=== PATIENT | female | born 1950 | race Caucasian/White ===

== ENCOUNTER 2017-07-15 06:58 | Day surgery (SDC) | payer MEDICARE, BC ==
[~2017-07-15 06:58] MED LIST: Lactated Ringers 1,000 ML IV SCH; Lidocaine 1%/Sod Bicarbonate in NS 8.4% 1 ML Syringe IDERM PRN; Sodium Chloride 0.9% 10 ML Syringe FLUSH PRN
--- NOTE | 2017-07-15 07:42 | PCM.PREANE ---
Preanesthetic Assessment - Procedure Proposed Procedure: Diagnostic colonoscopy - Anesthesia/Transfusion/Family Hx Anesthesia History: Prior Anesthesia Without Reaction Family History of Anesthesia Reaction: No Transfusion History: No Prior Transfusion(s) Intubation History: Unknown - Review of Systems General: No Symptoms Pulmonary: Other Cardiovascular: Other (HTN, HLD) Gastrointestinal: No Symptoms Neurological: No Symptoms Other: Reports: Diabetes (type 2), Thyroid Problems (hypothyroid) - Physical Assessment NPO Status Date: 07/14/17 NPO Status Time: 23:00 Pulse: 84 O2 Sat by Pulse Oximetry: 94 Respiratory Rate: 16 Blood Pressure: 165/103 Temperature: 37.4 C Height: 1.68 m Weight: 127 kg ASA Class: 2 Mental Status: Alert & Oriented x3 Airway Class: Mallampati = 2 Dentition: Reports: Normal Dentition Thyro-Mental Finger Breadths: 3 Mouth Opening Finger Breadths: 3 ROM/Head Extension: Full Lungs: Clear to Auscultation, Normal Respiratory Effort Cardiovascular: Regular Rate, Regular Rhythm - Allergies Allergies/Adverse Reactions: Allergies Allergy/AdvReac Type Severity Reaction Status Date / Time atenolol [From Tenormin] Allergy Dizziness Verified 07/14/17 12:02 - Blood Blood Available: No Product(s) Available: None - Anesthesia Plan Pre-Op Medication Ordered: None Beta Adrienne: Carvedilol Med Last Dose Date: 07/15/17 Med Last Dose Time: 05:00 - Acknowledgements Anesthesia Type Planned: MAC Pt an Appropriate Candidate for the Planned Anesthesia: Yes Alternatives and Risks of Anesthesia Discussed w Pt/Guardian: Yes Pt/Guardian Understands and Agrees with Anesthesia Plan: Yes PreAnesthesia Questionnaire HEENT History: Reports: Allergic Rhinitis, Sinusitis, Other (See Below) Other HEENT History: Eustachian tube dysfunction, impacted cerumen Cardiovascular History: Reports: High Cholesterol, Hypertension Respiratory History: Reports: Other (See Below) Other Respiratory History: Cough, upper respiratory infection Gastrointestinal History: Reports: Other (See Below) Other Gastrointestinal History: Rectal bleeding, stool incontinence Genitourinary History: Reports: None Other OB/BYN History: Labia irritation, vaginal itching Other Musculoskeletal History: Muscle tightness Neurological History: Reports: None Other Psychiatric History: Fatigue Endocrine/Metabolic History: Reports: Diabetes, Type II, Hypothyroidism Hematologic History: Reports: None Immunologic History: Reports: None Oncologic (Cancer) History: Reports: None Dermatologic History: Reports: None - Past Surgical History Head Surgeries/Procedures: Reports: None HEENT Surgical History: Reports: Adenoidectomy, Tonsillectomy Cardiovascular Surgical History: Reports: None Respiratory Surgical History: Reports: None GI Surgical History: Reports: Cholecystectomy, Other (See Below) Other GI Surgeries/Procedures: Lap band Female Surgical History: Reports: None Endocrine Surgical History: Reports: None Neurological Surgical History: Reports: None Musculoskeletal Surgical History: Reports: None Oncologic Surgical History: Reports: None Dermatological Surgical History: Reports: None - SUBSTANCE USE Smoking Status *Q: Former Smoker Second Hand Smoke Exposure: No Recreational Drug Use History: No - HOME MEDS Home Medications: Home Meds Aspirin [Halfprin] 81 mg PO DAILY 07/14/17 [History] Brimonidine Tartrate/Timolol [Combigan Eye Drops] 1 drop OP DAILY 07/14/17 [ History] Carvedilol [Coreg] 12.5 mg PO BID 07/14/17 [History] Fish Oil/[place]-3 Fatty Acids [Fish Oil 1,000 MG] 1,000 mg PO DAILY 07/14/17 [ History] Losartan Potassium 100 mg PO DAILY 07/14/17 [History] Multivitamin [Daily Multiple Vitamin] 1 tab PO DAILY 07/14/17 [History] Thyroid,Pork [Nature-Throid] 81.25 mg PO DAILY 07/14/17 [History] Triamcinolone Acetonide [Triamcinolone Acetonide 0.1% Crm] 1 applic TOP BID 06/26 [History] Ubidecarenone [Co Q-10] 200 mg PO BID 07/14/17 [History] amLODIPine Besylate [Amlodipine Besylate] 10 mg PO DAILY 07/14/17 [History] metFORMIN HCl [Metformin HCl] 1,000 mg PO BID 07/14/17 [History] - CURRENT (IN HOUSE) MEDS Current Meds: Current Medications Lactated Ringer's (Ringers, Lactated) 1,000 mls @ 125 mls/hr IV ASDIRECTED ARTEM Stop: 07/15/17 23:00 Lidocaine/Sodium Bicarbonate (Buffered Lidocaine 1% In Ns 8.4%) 0.25 ml IDERM ONETIME PRN PRN Reason: Prior to IV Start Stop: 07/15/17 18:00 Sodium Chloride (Saline Flush) 10 ml FLUSH ASDIRECTED PRN PRN Reason: Keep Vein Open Stop: 07/15/17 18:00 Discontinued Medications Lactated Ringer's (Ringers, Lactated) 1,000 mls @ 125 mls/hr IV ASDIRECTED ARTEM Lidocaine/Sodium Bicarbonate (Buffered Lidocaine 1% In Ns 8.4%) 0.25 ml IDERM ONETIME PRN PRN Reason: Prior to IV Start Sodium Chloride (Saline Flush) 10 ml FLUSH ASDIRECTED PRN PRN Reason: Keep Vein Open
[2017-07-15] MEDS ORDERED: Lidocaine 1% 4 ML ONE (08:07)
[2017-07-15] MEDS ORDERED: Propofol 200 MG/20 ML SDV ONE (08:08)
[2017-07-15] MEDS ORDERED: fentaNYL 100 MCG/2 ML SDV ONE (08:08)
--- NOTE | 2017-07-15 09:37 | PCM48HPAN ---
Post Anesthesia Note - EVALUATION WITHIN 48HRS OF ANESTHETIC Vital Signs in Normal Range: Yes Patient Participated in Evaluation: Yes Respiratory Function Stable: Yes Airway Patent: Yes Cardiovascular Function Stable: Yes Hydration Status Stable: Yes Pain Control Satisfactory: Yes Nausea and Vomiting Control Satisfactory: Yes Mental Status Recovered: Yes Pulse Rate: 83 SaO2: 93 Resp Rate: 16 Temperature: 98.6 F Blood Pressure: 142/90
--- NOTE | 2017-07-15 09:39 | PCM.OPNOTE ---
- General Post-Op/Procedure Note Date of Surgery/Procedure: 07/15/17 Operative Procedure(s): Colonoscopy with rectal polypectomy Findings: 1. Perianal skin tags 2. Slightly prolapsed left lateral internal hemorrhoidal column 3. External hemorrhoids uncomplicated 4. Diminutive rectal polyp Pre Op Diagnosis: Rectal bleeding Post-Op Diagnosis: 1. Perianal skin tags. 2. Slightly prolapsed left lateral internal hemorrhoidal column. 3. External hemorrhoids uncomplicated. 4. Diminutive rectal polyp Anesthesia Technique: MAC, Moderate Sedation Primary Surgeon: Sergey Andres Pathology: Rectal polyp EBL in mLs: 0 Complications: None Condition: Good Free Text/Narrative:: After adequate IV sedation and analgesia was obtained with monitoring the patient was placed on her left side. Perianal inspection revealed the anal tags , external hemorrhoids and prolapsed internal hemorrhoid. No external hemorrhoids were thrombosed. Digital rectal examination was remarkable for the hemorrhoids which I could palpate. There were no mass lesions. The sphincter tone was normal. A lubricated colonoscope was inserted into the rectum and advanced to the cecum without difficulty. The bowel preparation was fair. The cecum ascending colon transverse and descending colons were endoscopically normal. The sigmoid was normal as well. Within the rectum at about 12 cm there was a 3 mm hyperplastic-looking polyp which was removed with cold forceps. In the retroflexed view I could see the perianal tags. There were no obvious mass lesion throughout the examination. Air was removed as I finished the procedure which she tolerated well. Photographs were taken for the patient and for the medical record.
== END 2017-07-15 10:20 | disposition home or self-care (01) ==
LOC: JD.SDS 06:58
PROVIDERS: ATTEND Surgery
DX: K62.5 Hemorrhage of anus and rectum (principal); K62.1 Rectal polyp; K64.4 Residual hemorrhoidal skin tags; K64.8 Other hemorrhoids; E11.9 Type 2 diabetes mellitus without complications; I10 Essential (primary) hypertension; E78.00 Pure hypercholesterolemia, unspecified; E03.9 Hypothyroidism, unspecified; Z87.891 Personal history of nicotine dependence; Z79.82 Long term (current) use of aspirin; Z79.84 Long term (current) use of oral hypoglycemic drugs; Z79.899 Other long term (current) drug therapy; Z80.0 Family history of malignant neoplasm of digestive organs; Z88.8 Allergy status to other drugs, medicaments and biological substances
CPT/HCPCS: 45380; 82962; J2001; J3010; J7120; J2704

== ENCOUNTER 2018-04-11 12:45 | Emergency (ER) | payer MEDICARE, BC ==
--- NOTE | 2018-04-11 13:08 | EDM.PDOC ---
ED HPI GENERAL MEDICAL PROBLEM - General Chief Complaint: Neuro Symptoms/Deficits Stated Complaint: POSS STROKE Time Seen by Provider: 04/11/18 12:50 Source of Information: Reports: Patient History Limitations: Reports: No Limitations - History of Present Illness INITIAL COMMENTS - FREE TEXT/NARRATIVE: 67-year-old female presents to the ED for evaluation of right leg weakness and problems with her balance since about 1600 hrs. yesterday while she was seated in [facility]. She states she went home from [facility] but appreciated that her right leg didn't seem to obey her commands of walking. She felt like she was listing to the right side due to weakness. Feels her balance is off. Denies headache denies any vertigo symptoms. Denies any nausea vomiting. No history of previous CVA. Risk factors however do exist with hypertension, obesity, poorly controlled blood pressure, hypercholesterolemia, type 2 diabetes.. She doesn't feel that her speech is off. She has appreciated that her right arm is perhaps a little bit weaker than her left. No past history of CVA. Onset: Sudden Onset Date: 04/10/18 Onset Time: 16:00 (Is to appreciated right leg weakness when getting up from few at [facility] yesterday afternoon. She then stated that her right leg didn't seem to work quite right and she was a little off balance which has persisted today. She doesn't really feel that she is any worse today than she was yesterday) Duration: Hour(s): Location: Reports: Upper Extremity, Right (Some mild ataxia and weakness in the right upper extremity.), Lower Extremity, Right (Weakness and trouble with balance in the right leg) Quality: Reports: Other (No pain) Severity: Mild Improves with: Reports: None Worsens with: Reports: Other Context: Reports: Other. Denies: Activity, Exercise, Lifting, Sick Contact, Trauma Associated Symptoms: Reports: Malaise. 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 (see below) (She did take her normal medications today.) - Related Data Allergies Allergy/AdvReac Type Severity Reaction Status Date / Time atenolol [From Tenormin] Allergy Dizziness Verified 03/03/19 12:51 Home Meds: Home Meds Aspirin [Halfprin] 81 mg PO DAILY 07/14/17 [History] Carvedilol [Coreg] 12.5 mg PO BID 07/14/17 [History] Losartan Potassium 100 mg PO DAILY 07/14/17 [History] amLODIPine Besylate [Amlodipine Besylate] 10 mg PO DAILY 07/14/17 [History] metFORMIN HCl [Metformin HCl] 1,000 mg PO BID 07/14/17 [History] Levothyroxine [Synthroid] 100 mcg PO DAILY 04/11/18 [History] Magnesium Chloride [Slow-Mag] 71.5 mg PO BID #60 tablet. 04/11/18 [Rx] Past Medical History HEENT History: Reports: Allergic Rhinitis, Sinusitis, Other (See Below) Other HEENT History: Eustachian tube dysfunction, impacted cerumen Cardiovascular History: Reports: High Cholesterol, Hypertension Respiratory History: Reports: Other (See Below) Other Respiratory History: Cough, upper respiratory infection Gastrointestinal History: Reports: Other (See Below) Other Gastrointestinal History: Rectal bleeding, stool incontinence Genitourinary History: Reports: None Other SEAM RUBBER History: Labia irritation, vaginal itching Musculoskeletal History: Reports: Osteoarthritis, Osteoporosis Other Musculoskeletal History: Muscle tightness. Often gets muscle cramps in her lower extremities Neurological History: Reports: None Other Psychiatric History: Fatigue Endocrine/Metabolic History: Reports: Diabetes, Type II (Controlled with diet and metformin.), Hypothyroidism, Obesity/BMI 30+ Hematologic History: Reports: None Immunologic History: Reports: None Oncologic (Cancer) History: Reports: None Dermatologic History: Reports: None - Past Surgical History Head Surgeries/Procedures: Reports: None HEENT Surgical History: Reports: Adenoidectomy, Tonsillectomy Cardiovascular Surgical History: Reports: None Respiratory Surgical History: Reports: None GI Surgical History: Reports: Cholecystectomy, Other (See Below) Other GI Surgeries/Procedures: Lap band Female Surgical History: Reports: None Endocrine Surgical History: Reports: None Neurological Surgical History: Reports: None Musculoskeletal Surgical History: Reports: None Oncologic Surgical History: Reports: None Dermatological Surgical History: Reports: None Social & Family History - Caffeine Use Caffeine Use: Reports: Coffee - Living Situation & Occupation Living situation: Reports: 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 Denies: Fever, Chills, Decreased Appetite, Weight Loss (Right upper and lower extremity most notable in the right lower extremity) HEENT: Reports: Glasses (For reading) Respiratory: Reports: Shortness of Breath (On exertion.) Cardiovascular: Reports: Blood Pressure Problem, Dyspnea on Exertion. Denies: Chest Pain, Claudication (Chronic hypertension not all that well controlled), Edema, Lightheadedness, Orthopnea Endocrine: Reports: Fatigue, Other (Does have diabetes but doesn't often check her sugars.) GI/Abdominal: Denies: Abdominal Pain, Anorexia, Black Stool, Bloody Stool, Constipation, Diarrhea, Decreased Appetite, Difficulty Swallowing, Distension, Flatus, Hematemesis, Hematochezia, Melena, Mucous in Stool, Nausea : Reports: Frequency, Incontinence (Both urge and stress components) Musculoskeletal: Reports: Other (Osteoarthritis involving knees hips low back and neck and shoulders at times) Skin: Reports: No Symptoms Neurological: Reports: Headache, Difficulty Walking (Weakness right lower extremity called a walking today.), Weakness. Denies: Dizziness, Numbness, Paresthesia, Pre-Existing Deficit (Occasional headache a last was about 2 weeks ago), Seizure, Syncope, Tingling, Tremors, Trouble Speaking, Change in Speech Psychiatric: Reports: No Symptoms Hematologic/Lymphatic: Reports: No Symptoms Immunologic: Reports: No Symptoms ED EXAM, NEURO - Physical Exam Exam: See Below Exam Limited By: No Limitations General Appearance: Alert, WD/WN, No Apparent Distress, Other (Blood pressure is 180 04/09/02 needs to be kept an eye on.) Eye Exam: Bilateral Eye: Normal Inspection, PERRL Throat/Mouth: Normal Inspection, Normal Lips, Normal Oropharynx, Other Head Exam: Atraumatic, Normocephalic Neck: Normal Inspection (Uvula is in the midline), Supple, Non-Tender, Full Range of Motion. No: Carotid Bruit, Lymphadenopathy (L), Lymphadenopathy (R) Respiratory/Chest: No Respiratory Distress, Lungs Clear ( I believe due to size. ), No Accessory Muscle Use, Decreased Breath Sounds (Decreased breath sounds to both lower lung jacobsen). No: Normal Breath Sounds, Respiratory Distress, Rhonchi, Wheezing Cardiovascular: Regular Rate, Rhythm, No Edema, No Gallop, No Murmur, No Rub GI/Abdominal: Normal Bowel Sounds, Soft, Non-Tender, No Organomegaly, No Abnormal Bruit, No Mass, Pelvis Stable, Other (Abdominal girth limits ability to palpate solid organs.) Neurological: Alert, Normal Mood/Affect, CN II-XII Intact, Normal Plantar Flexion, Oriented x 3, Abnormal Finger to Nose (Mild ataxia in [id number] assessment on the right side normal on the left side.), Babinski (Equivocal on the right side), Difficulty Walking (Difficulty walking she lists towards the right side). No: Normal Gait, Normal Reflexes DTR: 1+: Achilles (R), Achilles (L), 2+: Bicep (R), Bicep (L), Patella (R), Patella (L) Extremities: Normal Inspection, Non-Tender (Limited range of motion external/ internal rotation of both hips due to arthritis and is clinically of arthritis in her knees.), No Pedal Edema, Other Psychiatric: Normal Affect, Normal Mood Skin Exam: Warm, Dry, Intact, Normal Color, No Rash EKG INTERPRETATION EKG Date: 04/11/18 Time: 13:24 Rhythm: NSR Rate (Beats/Min): 82 [place]: Normal P-Wave: Present QRS: Other (Decreased voltage in both the limb and precordial leads due to thick chest.) ST-T: Other (Nonspecific T-wave flattening in aVL) QT: Prolonged EKG Interpretation Comments: Borderline ECG Course - Vital Signs Last Recorded V/S: Last Vital Signs Temp 36.6 C 04/11/18 12:51 Pulse 83 04/11/18 15:20 Resp 16 04/11/18 15:20 BP 166/108 H 04/11/18 15:20 Pulse Ox 98 04/11/18 15:20 - Orders/Labs/Meds Orders: Active Orders 24 hr Category Date Time Status EKG Documentation Completion [RC] STAT Care 04/11/18 13:03 Active GLYCOSYLATED HEMOGLOBIN,HGBA1C [CHEM] Stat Lab 04/11/18 13:10 Received PRO B-TYPE NATRIUR PEPT,BNPPRO [CHEM] Stat Lab 04/11/18 13:10 Received Labs: Laboratory Tests 04/11/18 04/11/18 04/11/18 Range/Units 13:10 13:10 13:10 WBC 7.30 (3.98-10.04) K/mm3 RBC 5.11 (3.98-5.22) M/mm3 Hgb 15.1 (11.2-15.7) gm/L Hct 43.9 (34.1-44.9) % MCV 85.9 (79.4-94.8) fl MCH 29.5 (25.6-32.2) pg MCHC 34.4 (32.2-35.5) g/dl RDW Std Deviation 41.1 (36.4-46.3) fL Plt Count 284 (182-369) K/mm3 MPV 9.2 L (9.4-12.3) fl Neutrophils % (Manual) 72 H (40-60) % Band Neutrophils % 0 (0-10) % Lymphocytes % (Manual) 16 L (20-40) % Atypical Lymphs % 0 % Monocytes % (Manual) 10 (2-10) % Eosinophils % (Manual) 2 (0.7-5.8) % Basophils % (Manual) 0 L (0.1-1.2) Platelet Estimate Adequate RBC Morph Comment Normal ESR 26 H (0-20) mm/hr PT (9.5-12.1) SECONDS INR Sodium 137 (136-145) mEq/L Potassium 3.8 (3.5-5.1) mEq/L Chloride 102 (98-107) mEq/L Carbon Dioxide 26 (21-32) mEq/L Anion Gap 12.8 (5-15) BUN 13 (7-18) mg/dL Creatinine 1.0 (0.55-1.02) mg/dL Est Cr Clr Drug Dosing 51.10 mL/min Estimated GFR (MDRD) 55 (>60) mL/min BUN/Creatinine Ratio 13.0 L (14-18) Glucose 215 H (80-115) mg/dL Calcium 9.0 (8.5-10.1) mg/dL Magnesium 1.4 L (1.8-2.4) mg/dl Total Bilirubin 0.8 (0.2-1.0) mg/dL AST 36 (15-37) U/L ALT 85 H (14-59) U/L Alkaline Phosphatase 66 (46-116) U/L C-Reactive Protein 0.5 (<1.0) mg/dL Total Protein 7.6 (6.4-8.2) g/dl Albumin 3.7 (3.4-5.0) g/dl Globulin 3.9 gm/dL Albumin/Globulin Ratio 1.0 (1-2) Urine Color (Yellow) Urine Appearance (Clear) Urine pH (5.0-8.0) Ur Specific [place] (1.005-1.030) Urine Protein (Negative) Urine Glucose (UA) (Negative) Urine Ketones (Negative) Urine Occult Blood (Negative) Urine Nitrite (Negative) Urine Bilirubin (Negative) Urine Urobilinogen (0.2-1.0) Ur Leukocyte Esterase (Negative) 04/11/18 04/11/18 Range/Units 13:10 14:35 WBC (3.98-10.04) K/mm3 RBC (3.98-5.22) M/mm3 Hgb (11.2-15.7) gm/L Hct (34.1-44.9) % MCV (79.4-94.8) fl MCH (25.6-32.2) pg MCHC (32.2-35.5) g/dl RDW Std Deviation (36.4-46.3) fL Plt Count (182-369) K/mm3 MPV (9.4-12.3) fl Neutrophils % (Manual) (40-60) % Band Neutrophils % (0-10) % Lymphocytes % (Manual) (20-40) % Atypical Lymphs % % Monocytes % (Manual) (2-10) % Eosinophils % (Manual) (0.7-5.8) % Basophils % (Manual) (0.1-1.2) Platelet Estimate RBC Morph Comment ESR (0-20) mm/hr PT 10.8 (9.5-12.1) SECONDS INR 0.99 Sodium (136-145) mEq/L Potassium (3.5-5.1) mEq/L Chloride (98-107) mEq/L Carbon Dioxide (21-32) mEq/L Anion Gap (5-15) BUN (7-18) mg/dL Creatinine (0.55-1.02) mg/dL Est Cr Clr Drug Dosing mL/min Estimated GFR (MDRD) (>60) mL/min BUN/Creatinine Ratio (14-18) Glucose (80-115) mg/dL Calcium (8.5-10.1) mg/dL Magnesium (1.8-2.4) mg/dl Total Bilirubin (0.2-1.0) mg/dL AST (15-37) U/L ALT (14-59) U/L Alkaline Phosphatase (46-116) U/L C-Reactive Protein (<1.0) mg/dL Total Protein (6.4-8.2) g/dl Albumin (3.4-5.0) g/dl Globulin gm/dL Albumin/Globulin Ratio (1-2) Urine Color Yellow (Yellow) Urine Appearance Clear (Clear) Urine pH 6.5 (5.0-8.0) Ur Specific [place] 1.015 (1.005-1.030) Urine Protein 1+ H (Negative) Urine Glucose (UA) Negative (Negative) Urine Ketones Negative (Negative) Urine Occult Blood Negative (Negative) Urine Nitrite Negative (Negative) Urine Bilirubin Negative (Negative) Urine Urobilinogen 1.0 (0.2-1.0) Ur Leukocyte Esterase Negative (Negative) Meds: Medications Discontinued Medications Generic Name Dose Route Start Last Admin Trade Name Freq PRN Reason Stop Dose Admin Sodium Chloride 1,000 mls @ 150 mls/hr 04/11/18 13:15 04/11/18 13:17 Normal Saline IV 150 mls/hr ASDIRECTED ARTEM Administration Magnesium Oxide 800 mg 04/11/18 15:03 04/11/18 15:18 Magnesium Oxide PO 04/11/18 15:04 800 mg ONETIME ONE Administration - Radiology Interpretation Free Text/Narrative:: 67-year-old female presents to the ED with problems with her right leg not working correctly since sitting in [facility] yesterday about 1600 hrs. She appreciate when she got up from the [facility] that her right leg wasn't quite obeying her commands to walk normally she felt a little bit off balance and was listing a bit towards the right side. This weakness has persisted as has the off balance feeling. She appreciates perhaps some mild weakness in her right upper extremity as well and neuro exam demonstrates some ataxia on the right side. Motor power and tone is still 5 out of 5 in both leg and arm as compared to the left. 8 however is off she does have a listing towards the right side and has difficulty walking due to right leg weakness. Negative Romberg sign. No pronator drift. Cranial nerves II-12 were intact. Plan IV normal saline at 150 mils per hour. Patient has multiple risk factors for stroke with diabetes poorly controlled hypertension obesity hypercholesterolemia and type 2 diabetes. She will have routine labs performed including magnesium and glycosylated protein CT had to be done as well as ECG - Re-Assessments/Exams Free Text/Narrative Re-Assessment/Exam: 04/11/18 13:57 CT of the brain has been completed. It reveals no intracranial bleeding or mass effect. Ears to be normal coronary infarct in the white matter of the right side of the parietal cortex. I can see no obvious abnormalities in the moe-white watershed zone on the left side that would account for her symptoms. Her symptoms should be in the distribution of the middle meningeal artery. 04/11/18 13:58 White count is 7.30 with 72% neutrophils and no bands. Hemoglobin is 15.1 with hematocrit of 43.9. Platelet counts 284,000. PT is 10.8 with an INR of 0.99. 04/11/18 14:55 PT is 10.8. INR 0.99. Sodium 137 potassium 3.8 chloride 102 bicarbonate 26. Anion gap is 12.8 with a BUN of 13 creatinine is 1.0 GFR is 55. Glucose 2:15. Calcium 9.0. Magnesium 1.4. This is low total bilirubin is 0.8 AST is 36 ALT is 85 alk phosphatase 66 C-reactive protein is 0.5 total protein 7.6 with an albumin fraction of 3.7. Urinalysis is normal as well. I'll try and find some Slow-Mag from the hospital to provide a supplement for now one for tomorrow as the roads are getting quite bad and she has trouble getting back to [place], [place]. Had a re-walk with me and now she has no listing to the side and no weakness appreciable. No convincing evidence that she actually suffered a TIA as she has had symptoms for greater than 24 hours which would qualify her as having a stroke and likely some evidence of change on CT. She does have multiple risk factors and it would probably be worthwhile having an echocardiogram done and ultrasound of her carotid arteries at a bare minimum. I will leave it up her provider whether or not MRI of the brain with diffusion- weighted imaging should be entertained. It certainly should've she seems to continue to have any right-sided leg weakness. Departure - Departure Time of Disposition: 15:05 Disposition: Home, Self-Care Condition: Fair Clinical Impression: Hypomagnesemia, Transient weakness of right lower extremity - Discharge Information *PRESCRIPTION DRUG MONITORING PROGRAM REVIEWED*: Not Applicable *COPY OF PRESCRIPTION DRUG MONITORING REPORT IN PATIENT KELLY: Not Applicable Prescriptions: Magnesium Chloride [Slow-Mag] 71.5 mg PO BID #60 tablet. Instructions: Hypomagnesemia Referrals: Nighat Hannah, [employer]PERVISOR [Primary Care Provider] - Forms: ED Department Discharge Additional Instructions: Evaluation the emergency room today in regards to right sided leg weakness primarily. There may have been some slight weakness in the right upper extremity on examination as well. The right leg weakness was most apparent when we were walking and you seem to be listing a little bit to the right side. Improved while you were in the ED. Symptoms started yesterday afternoon at [facility] scan of the brain turned out to be completely within normal limits. Lab tests revealed no abnormalities other than a low serum magnesium level at 1.4. It should be around 2.0. Magnesium can cause muscles to cramp and to sometimes be weak as well. At this point time I cannot be 100% sure you did not suffer a very mild stroke. I would suggest taking 2 baby aspirins twice daily for the next 3 weeks and then reduce to one baby aspirin once daily every morning. Magnesium supplement in the ED was a 400 mg tablet and you should repeat tomorrow morning. Prescription written for Slow-Mag to be taken one tablet twice daily for the next month and then have your magnesium level checked at the clinic to see if you get by with one tablet versus two.. Of course return to the ED if you develop any further weakness on the right arm leg or problems with her speech. - My Orders Last 24 Hours: My Active Orders 04/11/18 13:03 EKG Documentation Completion [RC] STAT 04/11/18 13:10 GLYCOSYLATED HEMOGLOBIN,HGBA1C [CHEM] Stat PRO B-TYPE NATRIUR PEPT,BNPPRO [CHEM] Stat - Assessment/Plan Last 24 Hours: My Active Orders 04/11/18 13:03 EKG Documentation Completion [RC] STAT 04/11/18 13:10 GLYCOSYLATED HEMOGLOBIN,HGBA1C [CHEM] Stat PRO B-TYPE NATRIUR PEPT,BNPPRO [CHEM] Stat
[2018-04-11] MEDS ORDERED: Sodium Chloride 0.9% 1,000 ML IV SCH (13:15)
--- NOTE | 2018-04-11 14:15 | CT ---
Head CT Technique: Multiple axial sections through the brain were obtained. Intravenous contrast was not utilized. Comparison: No prior intracranial imaging. Findings: Ventricles along with basal cisterns and sulci over the convexities are mildly prominent. Diminished density is noted within the periventricular and subcortical white matter which is compatible with small vessel ischemic demyelination change. Similar findings are seen within portions of the basal ganglia. No other abnormal parenchymal densities are seen. No evidence of intracranial hemorrhage. No midline shift or mass effect is seen. Bone window settings were reviewed which shows no acute calvarial abnormality. Visualized sinuses are clear. Slight atherosclerotic calcification is noted within the carotid siphon. Impression: 1. Senescent change as noted above. Nothing acute is appreciated on noncontrast head CT exam. Diagnostic code #2
[2018-04-11] MEDS ORDERED: Magnesium Oxide 400 MG Tab PO ONE (15:03)
[2018-04-12 15:25] LABS: HEMOGLOBIN A1C 8.2 % (4.50-6.20)
== END 2018-04-11 15:20 | disposition home or self-care (01) ==
LOC: JD.ED 12:45
DX: E83.42 Hypomagnesemia (principal); M62.81 Muscle weakness (generalized); I10 Essential (primary) hypertension; E11.9 Type 2 diabetes mellitus without complications; Z88.8 Allergy status to other drugs, medicaments and biological substances; Z79.899 Other long term (current) drug therapy; Z79.84 Long term (current) use of oral hypoglycemic drugs
CPT/HCPCS: 36415; 70450; 80053; 81003; 83036; 83735; 83880; 85007; 85027; 85610; 85652; 86140; 93005; 96360; 96361; 99285; A9270; J7040